=== PATIENT | female | born 1975 | race Caucasian/White ===

== ENCOUNTER 2017-07-21 18:44 | Emergency (ER) | payer OTHER ==
[~2017-07-21] VITALS: Ht 157.5 cm; Wt 113.4 kg
[2017-07-21] MEDS ORDERED: AVAPRO150 MG (19:04)
[2017-07-21] MEDS ORDERED: PREVACID30 MG (19:05)
[2017-07-21] MEDS ORDERED: HYZAAR 100-251 EACH (19:05)
== END 2017-07-22 15:35 | disposition home or self-care (01) ==
LOC: ER 18:44
DX: K52.9 Noninfective gastroenteritis and colitis, unspecified (principal)

== ENCOUNTER → 2018-08-04 | Day surgery (SDC) | payer OTHER ==
[~2018-08-04] MED LIST: AVAPRO150 MG; HYZAAR 100-251 EACH; PREVACID30 MG
== END | disposition home or self-care (01) ==
LOC: AMB-ENDOS 10:20
DX: D13.1 Benign neoplasm of stomach (principal)